=== PATIENT | male | born 1955 | race Caucasian/White ===

== ENCOUNTER 2022-01-23 17:55 | Emergency (ER) | payer OTHER ==
[~2022-01-23] VITALS: Ht 167.6 cm; Wt 72.6 kg
--- NOTE | 2022-01-23 18:18 | NUR ---
NO ANSWER WHEN CALLED TO TRIAGE
[2022-01-23 18:45] VITALS: BP 144/91
--- NOTE | 2022-01-23 19:35 | NUR ---
CARMEN WILSON examining patient.
[2022-01-23] MEDS ORDERED: FAMOTIDINE 20 MG TAB PO ONE (19:40)
[2022-01-23] MEDS ORDERED: diphenhydrAMINE 50 MG CAP PO ONE (19:40)
[2022-01-23] MEDS ORDERED: predniSONE 20 MG TAB PO ONE (19:40)
[2022-01-23] MEDS ORDERED: PRED20TA5 PO (20:05)
[2022-01-23] MEDS ORDERED: HYDR28CR38 TP (20:05)
[2022-01-23] MEDS ORDERED: BEN50 PO (20:05)
[2022-01-23] MEDS ORDERED: LORA10SG1 PO (20:05)
--- NOTE | 2022-01-23 20:23 | NUR ---
Patient left without D/C papers.
== END 2022-01-23 20:23 | disposition home or self-care (01) ==
LOC: MED 17:55
DX: R21 Rash and other nonspecific skin eruption (principal)
CPT/HCPCS: 99283; J7512; Q0163

== ENCOUNTER 2022-11-23 11:10 | Emergency (ER) | payer OTHER ==
[~2022-11-23] VITALS: Ht 160 cm; Wt 68.9 kg
[~2022-11-23 11:10] MED LIST: BEN50 PO; HYDR28CR38 TP; LORA10SG1 PO; PRED20TA5 PO
[2022-11-23 11:21] VITALS: BP 163/96; PULSE 72; RESP 20; TEMP 97.7; O2SAT 96
[2022-11-23] MEDS ORDERED: ONDANSETRON 4 MG/2 ML VIAL IVP ONE (12:20)
[2022-11-23] MEDS ORDERED: MECLIZINE 25 MG TAB PO ONE (12:20)
[2022-11-23] MEDS ORDERED: NACL 0.9% 1,000 ML IV ONE (12:20)
--- NOTE | 2022-11-23 12:30 | NUR ---
66 y/o male c/o dizziness, nausea and vomiting x yesterday. Patient denies any fevers, chills or SOB. Denies any sick contacts or new foods. Denies taking any medication prior to arrval. Denies any burning while urination. Patient reports symptoms feel similar to previous stomach flu infection. Medical History: Denies NKDA
[2022-11-23 12:46] LABS: BASOPHILS % (AUTO) 0.4 % (0.0-2.0); EOSINOPHILS % (AUTO) 0.1 % (0.0-4.0); HEMATOCRIT 46.2 % (36-52); HEMOGLOBIN 15.6 g/dL (12.0-18.0); LYMPHOCYTES # (AUTO) 0.6 K/uL (2.0-11.5); LYMPHOCYTES % (AUTO) 8.2 % (20.5-51.1); MEAN CORPUSCULAR HEMOGLOBIN 31 pg (27-31); MEAN CORPUSCULAR HGB CONC 34 g/dL (33-37); MEAN CORPUSCULAR VOLUME 92.2 fL (80-94); MONOCYTES # (AUTO) 0.8 K/uL (0.8-1.0); MONOCYTES % (AUTO) 10.4 % (1.7-9.3); NEUTROPHILS # (AUTO) 6.1 K/uL (1.8-7.7); NEUTROPHILS % (AUTO) 80.9 % (42.2-75.2); PLATELET COUNT (AUTO) 180 K/uL (140-450); RED BLOOD CELL COUNT(AUTO) 5.02 MIL/uL (4.20-6.10); RED CELL DISTRIBUTION WIDTH 13.4 % (11.6-13.7); WHITE BLOOD COUNT (AUTO) 7.5 K/uL (4.8-10.8)
--- NOTE | 2022-11-23 12:57 | NUR ---
X-Ray at bedside.
[2022-11-23 13:14] LABS: ALBUMIN 3.8 g/dL (3.4-5.0); ANION GAP 13.9 (8-16); CARBON DIOXIDE 28.6 mmol/L (21-32); CREATININE 0.9 mg/dL (0.6-1.3); POTASSIUM 4.5 mmol/L (3.5-5.1); TOTAL BILIRUBIN 1.1 mg/dL (0.0-1.0)
--- NOTE | 2022-11-23 14:09 | NUR ---
Dr. Ortiz re-evaluating patient at bedside.
--- NOTE | 2022-11-23 14:22 | NUR ---
Patient was ambulated, no dizziness reported by patient. Dr. Ortiz made aware.
[2022-11-23 14:23] LABS: APPEARANCE,URINE CLEAR (CLEAR); BILIRUBIN,URINE NEGATIVE (NEGATIVE); BLOOD, URINE 1+ (NEGATIVE); COLOR,URINE YELLOW (YELLOW); LEUKOCYTE ESTERASE ,URINE NEGATIVE (NEGATIVE); NITRITE, URINE NEGATIVE (NEGATIVE); UGLUCOSE NEGATIVE (NEGATIVE)
[2022-11-23 14:30] LABS: RBC,URINE 0-5 /HPF (0-5); TRICHOMONAS,URINE None Seen /HPF (None Seen); YEAST,URINE None Seen /HPF (None Seen)
[2022-11-23] MEDS ORDERED: MECL-303 PO (14:49)
[2022-11-23] MEDS ORDERED: ONDA-188 PO (14:49)
--- NOTE | 2022-11-23 15:31 | NUR ---
Per Dr. Sin. stewart to discharge with high BP.
--- NOTE | 2022-11-23 15:36 | NUR ---
IV removed, catheter intact and site benign. Applied folded 4x4 gauze and tape to stop bleeding.
[2022-11-23 15:37] VITALS: BP 169/98; PULSE 83; RESP 20; TEMP 99.1; O2SAT 96
--- NOTE | 2022-11-23 15:37 | NUR ---
Patient discharged with v/s stable. Written and verbal after care instructions given. Patient alert, oriented and verbalized understanding of instructions. Ambulatory with steady gait. All questions addressed prior to discharge. ID band removed. Patient advised to follow up with PMD. Rx of Zofran and Meclizine given. Opportunity to ask questions provided and answered.
--- NOTE | 2022-11-23 17:50 | NUR ---
The patient's care was reviewed and supervised by JAVON PARK RN.
== END 2022-11-23 15:37 | disposition home or self-care (01) ==
LOC: MED 11:10
DX: H81.12 Benign paroxysmal vertigo, left ear (principal); I10 Essential (primary) hypertension; Z79.899 Other long term (current) drug therapy
CPT/HCPCS: 36415; 71045; 80053; 81001; 83690; 84484; 85025; 93005; 96361; 96374; 99285; J2405; J8597; Q0092; J7030